=== PATIENT | female | born 1945 | race Caucasian/White ===

== ENCOUNTER 2017-01-24 02:43 | Emergency (ER) | payer OTHER ==
[~2017-01-24] VITALS: Ht 162.6 cm; Wt 135.2 kg
[~2017-01-24 02:43] MED LIST: APRESOLINE100 MG PO; APRESOLINE50 M1 PO; APRESOLINE50 MG PO; ASPIR-LOW81 MG PO; BACTERICIN30 GM TP; CEFTIN500 MG PO; CEPHALEXIN500 MG PO; CYANOCOBALAM1000 MCG PO; DITROPAN5 MG PO; FLEET ENEMA-AD118 ML PR; FUROSEMIDE20 MG PO; FUROSEMIDE40 MG PO; GLUCO BURST37.5 GM PO; IPRATR-ALBUTEROL3 ML IH; KEFLEX500 MG PO; KETOCONAZOLE60 GM TP; LANTUS 10100 UNITS/ SC; LANTUS 3 M100 UNITS1 SC; LANTUS100 UNIT/1 PO; LASIX10 MG PO; LASIX20 MG PO; LEVEMIR FL100 UNITS/ SC; LIDOCAINE700 MG TD; LIDODERM 5% P1 PATCH TD; MACROBID100 MG PO; MECLIZINE HCL25 MG PO; METOLAZONE5 MG PO; MILK OF MAGN PO; NOVOLOG PE100 UNITS/ SC; PANTOPRAZOLE SO40 MG PO; PERCOCET 5/31 TABLET PO; PLAVIX75 MG PO; POTASSIUM CHLO20 ME1 PO; POTASSIUM-9999 MG PO; PROVENTIL,2.5 MG/0.5 IH; Plavix PO; SANTYL30 GM TP; SILVADENE20 GM TP; TOPROL XL50 MG PO; TYLENOL REGULA325 MG PO; ULTRAM50 MG PO; VERAPAMIL HCL180 MG PO; VERAPAMIL HCL240 M1 PO; VERAPAMIL HCL240 MG PO; ZETIA10 MG PO
[2017-01-24 03:16] LABS: HEMATOCRIT 36.4 % (36.0-46.0); MCH 28.4 PG (29.0-34.0); MCHC 32.4 G/DL (30.0-36.0); MCV 87.7 FL (83-99); MEAN PLAT.VOLUME 9.8 uM^3 (9.5-12.4); PLATELET COUNT 323 K/uL (156-360); RBC DIS.WIDTH-CV 14.1 % (11.8-14.6); RBC DIS.WIDTH-SD 45.1 % (39-53); RED BLOOD COUNT 4.15 M/uL (3.80-5.20); WHITE BLOOD COUNT 11.5 K/uL (4.1-10.2)
[2017-01-24 03:19] LABS: CARBON DIOXIDE (BICARBONATE) 31.2 MEQ/L (20-31)
[2017-01-24 03:24] LABS: CHLORIDE 99 mEq/L (99-109); SODIUM 136 mEq/L (136-147)
[2017-01-24 03:27] LABS: GLUCOSE 167 mg/dL (70-99)
[2017-01-24 03:28] LABS: ANION GAP 9 MEQ/L (2-14)
[2017-01-24 03:29] LABS: TOTAL BILIRUBIN 0.4 mg/dL (0.0-1.0)
[2017-01-24 03:30] LABS: ALKALINE PHOSPHATASE 103 IU/L (3-129); GFR ESTIMATE (CALCULATED) > 59 mL/min/
[2017-01-24 03:31] LABS: UREA NITROGEN (BUN) 7 mg/dL (9-23)
[2017-01-24 03:34] LABS: LIPASE 7 U/L (1.0-51.0)
[2017-01-24 03:41] LABS: TROP-I INTERPRETATION NEGATIVE; TROPONIN-I < 0.01 ng/mL (0.0-0.30)
[2017-01-24 05:32] VITALS: BP 140/63
== END 2017-01-24 05:32 ==
LOC: EME → EDBD 02:43 → EME 05:32
PROVIDERS: Emergency Medicine
DX: R06.00 Dyspnea, unspecified (principal); E11.65 Type 2 diabetes mellitus with hyperglycemia; K21.9 Gastro-esophageal reflux disease without esophagitis; I10 Essential (primary) hypertension; E78.5 Hyperlipidemia, unspecified; Z86.73 Personal history of transient ischemic attack (TIA), and cerebral infarction without residual deficits; Z79.4 Long term (current) use of insulin
CPT/HCPCS: 71010; 80053; 81003; 82803; 83690; 83880; 84484; 85027; 93005; 99281; 99284

== ENCOUNTER → 2017-04-12 | Outpatient (CLI) | payer OTHER | LOC: RAD 08:30 | DX: J18.9 Pneumonia, unspecified organism (principal); R91.8 Other nonspecific abnormal finding of lung field; R05 Cough | CPT/HCPCS: 71260 ==

== ENCOUNTER → 2017-05-11 | Outpatient (CLI) | payer OTHER | LOC: RAD 05-05 11:00 | DX: I51.7 Cardiomegaly (principal); I25.10 Atherosclerotic heart disease of native coronary artery without angina pectoris; R91.8 Other nonspecific abnormal finding of lung field | CPT/HCPCS: 71260 ==